=== PATIENT | male | born 1960 | race Two or more races ===

== ENCOUNTER 2020-10-07 14:59 | Outpatient (CLI) | payer OTHER | END 2020-10-07 15:06 | disposition home or self-care (01) | LOC: RAD 14:59 | PROVIDERS: ATTEND General Practice | DX: I51.7 Cardiomegaly (principal); I70.0 Atherosclerosis of aorta ==

== ENCOUNTER 2021-03-31 23:16 | Inpatient (IN) | payer OTHER ==
[~2021-03-31] VITALS: Ht 180.3 cm; Wt 97.1 kg
== END 2021-04-01 18:40 | disposition left against medical advice (07) | DRG 69 ==
LOC: ER 23:16 → SEC-K 04-01 13:35
PROVIDERS: ADMIT Internal Medicine; ATTEND Internal Medicine
PROC: BW28ZZZ Computerized Tomography (CT Scan) of Head (ICD-10-PCS; principal; 2021-04-01)
PROC: 4A12X4Z Monitoring of Cardiac Electrical Activity, External Approach (ICD-10-PCS; 2021-04-01)
PROC: 3E0F7SF Introduction of Other Gas into Respiratory Tract, Via Natural or Artificial Opening (ICD-10-PCS; 2021-04-01)
DX: G45.8 Other transient cerebral ischemic attacks and related syndromes (principal); I16.0 Hypertensive urgency; R51.9 Headache, unspecified; R53.1 Weakness; R47.81 Slurred speech; Z86.73 Personal history of transient ischemic attack (TIA), and cerebral infarction without residual deficits; Z20.822 Contact with and (suspected) exposure to COVID-19; Z53.29 Procedure and treatment not carried out because of patient's decision for other reasons

== ENCOUNTER 2022-12-17 10:38 | Emergency (ER) | payer OTHER ==
[~2022-12-17] VITALS: Ht 180.3 cm; Wt 90.7 kg
[2022-12-17] MEDS ORDERED: AMLODIPINE BESYL5 MG PO (10:48)
[2022-12-17] MEDS ORDERED: HORIZANT300 MG PO (10:48)
[2022-12-17] MEDS ORDERED: COZAAR100 MG PO (10:48)
[2022-12-17] MEDS ORDERED: ATORVASTATIN CA40 MG PO (10:48)
[2022-12-17] MEDS ORDERED: ADULT ASPIRIN81 MG PO (10:49)
[2022-12-17] MEDS ORDERED: DIAZEPAM5 MG PO (14:18)
[2022-12-17] MEDS ORDERED: METAXALONE800 MG PO (14:18)
[2022-12-17] MEDS ORDERED: CELEBREX200MG PO (14:18)
[2022-12-17] MEDS ORDERED: ARTHRITIS PAIN650 M2 PO (14:18)
== END 2022-12-17 14:31 | disposition home or self-care (01) ==
LOC: ER 10:38
DX: M54.16 Radiculopathy, lumbar region (principal); I10 Essential (primary) hypertension

== ENCOUNTER 2022-12-19 07:50 | Outpatient (CLI) | payer OTHER ==
[~2022-12-19 07:50] MED LIST: ADULT ASPIRIN81 MG PO; AMLODIPINE BESYL5 MG PO; ARTHRITIS PAIN650 M2 PO; ATORVASTATIN CA40 MG PO; CELEBREX200MG PO; COZAAR100 MG PO; DIAZEPAM5 MG PO; HORIZANT300 MG PO; METAXALONE800 MG PO
== END 2022-12-19 08:10 | disposition home or self-care (01) ==
LOC: MRI 07:50
PROVIDERS: ATTEND Emergency Medicine
DX: M54.16 Radiculopathy, lumbar region (principal)
CPT/HCPCS: 72148